=== PATIENT | female | born 1955 | race Caucasian/White ===

== ENCOUNTER → 2017-07-20 | Outpatient (CLI) | payer OTHER ==
--- NOTE | 2017-07-20 13:58 | RADRPT ---
EXAM DATE/TIME: 07/20/2017 12:45 [place] COMPARISON: No previous studies available for comparison. INDICATIONS : Right knee pain at patella. MEDICAL HISTORY : None. SURGICAL HISTORY : None. ENCOUNTER: Initial ACUITY: 1 day PAIN SCORE: 0/10 LOCATION: Right knee. FINDINGS: 4 views of the right knee demonstrate no fracture or dislocation. There are small tricompartmental os teophytes with medial joint space narrowing. No joint effusion is identified. There is marked prepate llar soft tissue swelling. No radiopaque foreign body is seen. CONCLUSION: 1. Prepatellar soft tissue swelling. No fracture is identified. 2. 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 Kale Santiago MD on July 20, 2017 at 13:55 Board Certified Radiologist. This report was verified electronically.
== END ==
LOC: HRAD 12:22
PROVIDERS: ATTEND Family Medicine
DX: M70.41 Prepatellar bursitis, right knee (principal)
CPT/HCPCS: 73564